=== PATIENT | male | born 1955 | race Caucasian/White ===

== ENCOUNTER 2016-12-18 13:45 | Inpatient (IN) | payer OTHER ==
--- NOTE | 2016-12-18 13:44 | EDPHY ---
H & P HPI/ROS: CHIEF COMPLAINT: Witnessed fall from 20ft. HISTORY OF PRESENT ILLNESS: This patient is a 61 year old male arriving via EMS following a witnessed fall off a balcony about 20ft above ground complaining of left-sided wrist and shoulder pain. EMS reports he was leaning backwards against a railing, which buckled, and he fell backward. His daughter reports he landed in the position on his left side. She states he was groggy and hazy, but she and the patient deny loss of consciousness. Per EMS, he was alert and oriented on scene , and originally hypotensive around 100 systolic but improved during transport. EMS reports he had no pelvic instability of lower extremity complaints. He was noted to have a left clavicular deformity and left wrist deformity. Left wrist was splinted by the paramedics. He received fentanyl and Zofran EN route. The patient confirms the elements of the HPI above. He states he is not sure if he hit his head, and says he felt "kind of foggy", but he denies loss of consciousness. He denies neck or back pain. He has no numbness or apparent weakness. He reports some left-sided chest pain with inspiration, left wrist pain, and left clavicle pain. He does not feel short of breath. VS: BP 131/99, HR 80, SpO2 96% REVIEW OF SYSTEMS: A ten point review of systems was performed and is negative with the exception of the items mentioned in the HPI. Source: Patient, Family, EMS Exam Limitations: No limitations - Medical/Surgical History PMH: 1. Left shoulder arthroscopic surgery ~5 years ago. 2.Knee arthroscopy 3. Vasectomy - Social History Additional Social History: Family at beside (, daughter, and son). He does not use tobacco products or alcohol. He denies the use of illicit drugs. - Physical Exam Exam: General: Cervical collar removed by technical project lead, he arrived on a scoop with cervical immobilization via towels and tape. The patient is in no acute distress. The patient is alert. Marcelle Coma Score is 15 . Blood pressure 131 /99 on arrival. Head: Normocephalic/atraumatic. No Narayanan's sign. No raccoon eyes. Neck: Nontender with palpation of the cervical spine. Trachea is midline. Eyes: PERRLA. EOMI. No subconjunctival hemorrhage. Ears nose and throat: No hemotympanum. Nares are patent and without clotted nasal blood. No dental injury or malocclusion. Airway is patent. Lungs: Mild left rib tenderness, no crepitus, or subcutaneous emphysema. Breath sounds are equal and audible bilaterally. No wheezes, rales, or rhonchi. Thorax: There is midshaft deformity of the left clavicle with tenderness. Cardiac: Heart has regular rate and rhythm without murmur, rub, or gallop. Abdomen: Soft, nontender, and nondistended. No guarding or rebound. Bowel sounds are present. Genital: No blood at the urethral meatus. Rectal: Rectal tone is normal. No blood on the examining glove. Prostate is normal. Back: No vertebral tenderness. Skin: No ecchymoses. Skin is warm and dry. Extremities: Abrasion above left elbow. Wrist in splint, wrapped. Wrist deformity. No other bony point tenderness with evaluation of all 4 extremities, hands, and feet. Pelvis is stable. Hips are nontender. Pulses: 2+ femoral and dorsalis pedis pulses bilaterally. 2+ left radial pulse. Neuro: The patient is alert and oriented. Sensation is intact to light touch of all 4 extremities. Strength is 5 over 5 with testing of major motor groups-- left arm not tested due to splinting. Cranial nerves are normal as tested. PERRLA. EOMI. Facial expression symmetric. Hearing intact to spoken voice. Tongue midline. Constitutional: Initial Vital Signs Temperature (C) 36.7 C 12/18/16 13:50 Heart Rate 78 12/18/16 13:50 Respiratory Rate 20 12/18/16 13:50 Blood Pressure 131/99 H 12/18/16 13:50 O2 Sat (%) 96 12/18/16 13:50 O2 Delivery Mode Room Air Allergies/Adverse Reactions: No Known Allergies Allergy (Unverified 12/18/16 14:28) Home Medications: Medication Instructions Recorded NK [No Known Home Meds] 12/18/16 Medical Decision Making - Diagnostics Imaging Results: Imaging Impressions Clavicle X-Ray 12/18/16 15:00 Impression: Acute minimally displaced left midshaft clavicle fracture. Wrist X-Ray 12/18/16 15:09 Impression: Partial reduction of distal radius fracture. Persistent angulation and displacement of the distal fracture fragment. Imaging: Discussed imaging studies w/ outbound call center representative Radiologist, I viewed and interpreted images myself Procedures: 1. Procedure: Trauma ultrasound. Limited bedside ultrasound was performed and interpreted by myself for the indication of: thoracoabdominal trauma utilizing the thoracoabdominal emergency ultrasound protocol. Limited transthoracic echocardiogram: The pericardium was visualized and found to be negative for pericardial fluid. The study was negative for pericardial effusion. Limited abdominal ultrasound for blunt abdominal trauma. 1) The right upper quadrant was visualized and was found to be negative for intraperitoneal fluid. 2) The left upper quadrant was visualized and found to be negative for intraperitoneal fluid. The study was felt to be negative for free intraperitoneal fluid. Limited pelvic ultrasound was conducted for abdominal trauma. The bladder was visualized and did not reveal an anechoic area outside of the adjacent urinary bladder. The study was felt to be negative for free intraperitoneal fluid. Unfortunately, cardiac and left upper quadrant images were not saved. 2. Procedure: Splint placement. A reverse sugar-tong splint was applied to the left forearm and wrist by the emergency department electrical technician. After application of the splint I re-examined the patient. The splint was adequately immobilizing the joint and the patient' s circulation and sensation were intact. ED Course/Re-evaluation: This patient is a 61 year old male, limited trauma activation, presenting with multiple injuries following a witnessed fall of approximately 20 ft. Physical exam reveals deformity to his left collar bone and left wrist, an abrasion above his elbow, and some tenderness over the left ribs. 13:46 Met EMS at bedside. 13:55 IV established by EMS. Administered 1L NS. HR 48. Patient arrived with systolic pressure of 130 and subsequently complained of feeling badly, as if he might faint. He was supine, pale, and diaphoretic. Blood pressure at that time was noted to be 66 systolic. He was upgraded by me to a full trauma activation at that point. 14:03 Moved to trauma bay due to hypotension. BP 81/54 . Second IV established. 2L IV NS wide open. 14:05 Procedure: Trauma ultrasound at bedside. No abnormalities noted. 14:05 Stat chest x-ray ordered at bedside. Completed 14:08. Reviewed at bedside. 14:10 Wrist x-ray at bedside. 14:10 BP 117/83. Patient denies chest pain. 14:13 Reviewed wrist x-ray at bedside. 14:[address] Ortiz at bedside. Removed wraps and splint from L wrist. Reduced left wrist fracture at bedside. 14:16 Dr. Diaz, trauma surgeon, at bedside. BP 141/95. Dr. Diaz performed trauma exam. 14:[address] 14:[address] Verdin, Radiologist. CT scan of the head reported as normal. CT scan of the cervical spine normal. Chest CT reveals rib fractures of ribs 4 through 10, nondisplaced, and left clavicle comminuted fracture. There is a small pneumothorax. Abdominal CT reveals small splenic laceration without extravasation. CT of thoracic and lumbar spine negative for fracture. The patient had no further hypotension. During his stay in the emergency department his left wrist was formally splinted. Postreduction x-ray revealed improvement but continued angulation. Dr. Ortiz planned surgery on this fracture in the future. The patient was admitted to the trauma surgery service, Dr. Shea. Differential Diagnosis: I considered a differential diagnosis of traumatic injury that includes but is not limited to intracranial hemorrhage, skull fracture, concussion, vertebral injury, spinal cord injury, intrathoracic injury, intra-abdominal injury, long bone fractures, contusions, abrasions, and lacerations. Critical Care Time: I, Dr. Luci Haro, personally spent a total of 45 minutes of critical care time including time spent obtaining a history, performing a physical exam, monitoring interventions, collecting and interpreting tests and in discussion with consultants. This does not include time spent performing procedures or physician temporary administrative assistant time. The patient was at risk of cardiovascular deterioration. - Data Points Medications Given: Discontinued Medications Sodium Chloride (Ns) 1,000 mls @ 0 mls/hr IV ONCE ONE PRN Reason: Wide Open Stop: 12/18/16 13:58 Last Admin: 12/18/16 13:58 Dose: 1,000 mls Departure - Departure Disposition: [facility] Inpatient Acute Clinical Impression: Fracture, clavicle closed, shaft Qualifiers: Encounter type: initial encounter Fracture alignment: displaced Laterality: left Qualified Code(s): S42.022A - Displaced fracture of shaft of left clavicle , initial encounter for closed fracture Ribs, multiple fractures Qualifiers: Encounter type: initial encounter Fracture type: closed Laterality: left Qualified Code(s): S22.42XA - Multiple fractures of ribs, left side, initial encounter for closed fracture Wrist fracture, closed Qualifiers: Encounter type: initial encounter Laterality: left Qualified Code(s): S62.102A - Fracture of unspecified carpal bone, left wrist, initial encounter for closed fracture Splenic laceration Qualifiers: Encounter type: initial encounter Qualified Code(s): S36.039A - Unspecified laceration of spleen, initial encounter Fall Qualifiers: Encounter type: initial encounter Qualified Code(s): W19.XXXA - Unspecified fall, initial encounter Condition: Fair Report Scribed for: Luci Haro Report Scribed by: Rupal Moraes Date of Report: 12/18/16 Time of Report: 15:16 Physician Review and Approval Statement: 12/18/16 13:44 Portions of this note were transcribed by the biomedical photographer. I, Dr. Luci Haro, personally performed the history, physical exam, and medical decision- making; and confirmed the accuracy of the information in the transcribed note.
[2016-12-18] MEDS ORDERED: NS 1,000 ML IV ONE (13:57)
--- NOTE | 2016-12-18 15:11 | PDGENHP ---
History and Physical - Chief Complaint 61 y/o male fell off his deck landing on his left side 20 ft down/FTA - History of Present Illness Mr. Lyons was [place] his [place] near [place] when he leaned against the deck rail, which gave way and he fell 20 feet landing on his left side. He remained conscious and was transported by EMR to [facility] ED as a FTA. En route he had a drop in BP which responded to volume challenge. He arrive at 1400, while I was in the OR and he was seen on arrival by Dr. Myers. I met him at [address] scanner. He reports left shoulder and left wrist pain and feels like he has to urinate. He denies LOC, weakness, numbness, paresthesias, neck or back pain. He does have some left sided chest pain with movement or deep inspiration History Information - Allergies/Home Medication List Allergies/Adverse Reactions: No Known Allergies Allergy (Unverified 12/18/16 14:28) Home Medications: NK [No Known Home Meds] 12/18/16 [Last Taken Unknown] I have personally reviewed and updated: family history, medical history, social history, surgical history - Past Medical History hypertension (mild/monitored by PCP) - Surgical History Additional surgical history: left shoulder and right knee arthroscopy - Family History Positive for: hypertension - Social History Smoking Status: Never smoked Alcohol Use: None Drug Use: None Additional social history: and accompanied by his , daughter and son Review of Systems Constitutional: Reports: recent injury (fall as described in HPI) EENMT: Reports: no symptoms Cardiac: Reports: chest pain (left lateral) Respiratory: Reports: other (pain with deep inspiration/laughing) Gastrointestinal: Reports: no symptoms Genitourinary: Reports: other (has not voided since injury) Muscolosketal: Reports: joint pain (left shoulder/left wrist. Pt is right handed) Skin: Reports: no symptoms Neurological: Reports: no symptoms Hematologic/Lymphatic: Reports: no symptoms Immunologic/Allergy: Reports: no symptoms, other (tetanus vaccination within last 5 years) Physical Exam Temp Pulse Resp BP Pulse Ox 36.7 C 78 20 131/99 H 96 12/18/16 13:50 12/18/16 13:50 12/18/16 13:50 12/18/16 13:50 12/18/16 13:50 Constitutional: uncomfortable Eyes: PERRL, EOMI, other (no hemotympanum) Ears, Nose, Mouth, Throat: ears appear normal Cardiovascular: regular rate and rhythym Peripheral Pulses: 3+: dorsalis-pedis (R), dorsalis-pedis (L), 4+: carotid (R), carotid (L), femoral (R), femoral (L) Respiratory: clear to auscultation Genitourinary: other (bladder fullness to palpation) Skin: warm, other (mild pallor) Musculoskeletal: full muscle strength, other (tendern deformity left midclavicle /left wrist in volar splint post reduction/non-tender cervical, thoracic and lumbar spine posterior midline) Neurologic: AAOx3, sensation intact bilaterally, CN II-XII Intact, other (DTS's brisk and symmetrical) Lab Data & Imaging Review POC Hgb 13.6 gm/dL (14.5-17.3) L 12/18/16 14:08 POC Hct 40 % (42.8-50.6) L 12/18/16 14:08 POC Sodium 144 mEq/L (134-144) 12/18/16 14:08 POC Potassium 3.7 mEq/L (3.3-5.0) 12/18/16 14:08 POC Chloride 108 mEq/L (96-108) 12/18/16 14:08 POC BUN 20 mg/dL (7-23) 12/18/16 14:08 POC Creatinine 1.1 mg/dL (0.8-1.5) 12/18/16 14:08 POC Glucose 114 mg/dL (70-100) H 12/18/16 14:08 Patient ABO/Rh O POSITIVE 12/18/16 14:13 Antibody Screen NEGATIVE 12/18/16 14:13 Crossmatch IS Only See Detail 12/18/16 14:13 Visualized and Interpreted Chest x-ray results: Yes Chest X-Ray results: no infiltrate Visualized and Interpreted imaging results: Yes Interpretation: reviewed with Dr. Verdin. CT chest/abd left posterior 4-10 rib fx, tiny possible left pneumothorax, left inferior pole splenic subcapsular hematoma (grade 1), left midshaft clavicle fracture Assessment & Plan Assessment: S/p fall from 20 ft. height left distal radius/ulnar fracture, closed, s/p reduction in ED by Dr. Richardson Left midshaft clavicle fracture multiple left posterior non-displaced rib fractures (4-10) possible tiny left pneumothorax grade 1 splenic laceration transient hypotension, unlikely related to significant blood loss hx mild hypertension Plan: Admit observation to SDU monitor H/H, BP, left UE N/V status repeat CXR in AM SCD's for VTE prophylaxis Dr. Long feels the left wrist and possible the clavicle will require ORIF at some point
[2016-12-18] MEDS ORDERED: DIAZEPAM 5 MG TAB PO PRN (15:12)
[2016-12-18] MEDS ORDERED: ONDANSETRON DISINTEGRATING 4 MG TAB PO PRN (15:12)
[2016-12-18] MEDS ORDERED: ONDANSETRON 4 MG/2 ML VIAL IVP PRN (15:12)
[2016-12-18 15:40] LABS: COLOR PALE YELLOW; LEUKOCYTE ESTERASE,URINE NEGATIVE (NEGATIVE); NITRITE,URINE NEGATIVE (NEGATIVE)
[2016-12-18] MEDS ORDERED: IOPAMIDOL (ISOVUE-300) 100 ML BTL ONE (15:40)
[2016-12-18 15:46] LABS: MUCUS TRACE /lpf (NONE-1+)
[2016-12-18] MEDS ORDERED: fentaNYL 100 MCG/2 ML INJ ONE (15:46)
--- NOTE | 2016-12-18 16:07 | GCON ---
[f rep st] CONSULTATION EMERGENCY ROOM CONSULTATION DATE OF CONSULTATION: 12/18/2016 CHIEF COMPLAINT: Fall from height. HISTORY OF PRESENT ILLNESS: This is a 61-year-old male who arrived after falling backward when a ra il buckled. He reportedly fell about 20 feet. Denies losing consciousness, but was hazy. Seen in the ER as a full trauma activation. He complained of wrist pain, shoulder pain. PAST MEDICAL HISTORY: Reviewed with him and his family, is not significant. SURGICAL HISTORY: Has had shoulder surgery about 5 years ago and has had left knee arthroscopy and a vasectomy. MEDICATIONS: Please see inpatient medication list. ALLERGIES: No known drug allergies. FAMILY HISTORY: Noncontributory. SOCIAL HISTORY: Nonsmoker. REVIEW OF SYSTEMS: Full review of systems was obtained is otherwise negative. PHYSICAL EXAMINATION: GENERAL: He is alert and is responsive. He is in a C-collar. HEENT: He andrade s some abrasions on his face. He is able to move his eyes. NECK: He is in a C-collar. HEART: Hi s pulses are regular in rate and rhythm. LUNGS: He shows good inspiratory effort. ABDOMEN: Soft. EXTREMITIES: His left upper extremity, when I saw him in the trauma bay, was in a splint. I trina kary this and this was grossly deformed. I performed a reduction of this and obtained much better al ignment. He was able to flex and extend his thumb and his fingers, and reports sensation to all ner ves. His elbow and shoulder move well. Did have some crepitus in his left collarbone. Right upper extremity moved well with no point tenderness. He had sensation intact to lower extremities. He i s able to move quite well with good range of motion, 5/5 strength. RADIOGRAPHS: Initial wrist radiograph showed a displaced distal radius fracture with severe dorsal angulation. CT scan shows a clavicle fracture. PLAN: He is being admitted to the trauma service. Will obtain repeat x-rays now that I have reduce d the distal radius. He will be placed in a more stable splint. He will need an ORIF of distal rad ius in the future. We will also obtain plain films of the clavicle to further assess the length and rotation alignment of this to see if this requires surgery as well. We will follow up these films and make further recommendations. /[id number]/MODL
[2016-12-18 17:48] LABS: % IMMATURE GRANULYOCYTES 0.5 % (0.0-1.1); ABSOLUTE IMMATURE GRANULOCYTES 0.08 10^3/uL (0.00-0.10); ADD DIFF? NO; ADD MORPH? NO; ADD SCAN? NO; ATYPICAL LYMPHOCYTE FLAG 0 (0-99); FRAGMENT RBC FLAG 0 (0-99); HEMATOCRIT 38.6 % (40.0-51.0); HEMOGLOBIN 13.1 g/dL (13.7-17.5); LEFT SHIFT FLG 0 (0-99); LIPEMIA HEMOLYSIS FLAG 90 (0-99); MEAN CELL HEMOGLOBIN 30.7 pg (27.9-34.1); MEAN CELL HEMOGLOBIN CONCENTR. 33.9 g/dL (32.4-36.7); MEAN CELL VOLUME 90.4 fL (81.5-99.8); MEAN PLATELET VOLUME 10.6 fL (8.7-11.7); PLATELET CLUMPS FLAG 10 (0-99); PLATELET COUNT 193 10^3/uL (150-400); RED BLOOD CELL COUNT 4.27 10^6/uL (4.40-6.38); RED CELL DISTRIBUTION WIDTH 12.6 % (11.5-15.2)
[2016-12-18 17:57] LABS: INR 1.07 (0.83-1.16); PROTIME(PATIENT) 13.8 SEC (12.0-15.0)
[2016-12-18 17:58] LABS: APTT 28.3 SEC (23.0-38.0)
[2016-12-18 18:15] LABS: ANION GAP 9 mEq/L (8-16); CALCIUM 7.8 mg/dL (8.5-10.4); CARBON DIOXIDE 20 mEq/l (22-31); CHLORIDE 113 mEq/L (97-110); CREATININE 0.9 mg/dL (0.7-1.3); GLOMERULAR FILTRATION RATE > 60; GLUCOSE 108 mg/dL (70-100); POTASSIUM 4.3 mEq/L (3.5-5.2); SODIUM 142 mEq/L (134-144)
[2016-12-18] MEDS: HYDROCODONE/APAP 5/325 TAB PO PRN ×2 (18:45→23:45)
[2016-12-18] MEDS: IBUPROFEN 600 MG TAB PO SCH (21:20)
[2016-12-18 21:35] LABS: HEMATOCRIT 37.6 % (40.0-51.0); HEMOGLOBIN 12.9 g/dL (13.7-17.5)
[2016-12-19 03:20] LABS: HEMATOCRIT 36.7 % (40.0-51.0); HEMOGLOBIN 12.3 g/dL (13.7-17.5)
[2016-12-19] MEDS: IBUPROFEN 600 MG TAB PO SCH ×3 (06:08→21:06)
[2016-12-19 06:28] LABS: HEMATOCRIT 37.3 % (40.0-51.0); HEMOGLOBIN 12.7 g/dL (13.7-17.5)
[2016-12-19 06:47] LABS: ANION GAP 4 mEq/L (8-16); CALCIUM 8.6 mg/dL (8.5-10.4); CARBON DIOXIDE 23 mEq/l (22-31); CHLORIDE 108 mEq/L (97-110); CREATININE 0.8 mg/dL (0.7-1.3); GLOMERULAR FILTRATION RATE > 60; GLUCOSE 109 mg/dL (70-100); POTASSIUM 4.4 mEq/L (3.5-5.2); SODIUM 135 mEq/L (134-144)
[2016-12-19] MEDS: HYDROCODONE/APAP 5/325 TAB PO PRN ×3 (07:29→21:07)
--- NOTE | 2016-12-19 10:02 | TRAUMAPN ---
- Problem/Surgery Performed (1) Fracture, clavicle closed, shaft Assessment/Plan: Xrays performed awaiting Dr Ortiz Orthopedic surgery recommendations. Pain control. Qualifiers: Encounter type: initial encounter Fracture alignment: displaced Laterality: left Fracture healing: F Qualified Code(s): S42.022A - Displaced fracture of shaft of left clavicle, initial encounter for closed fracture (2) Ribs, multiple fractures Assessment/Plan: Pain fairly well controlled with medications Aggressive pulmonary toilet Qualifiers: Encounter type: initial encounter Fracture type: closed Laterality: left Fracture healing: F Qualified Code(s): S22.42XA - Multiple fractures of ribs, left side, initial encounter for closed fracture (3) Splenic laceration Assessment/Plan: Hbg/HCT stable x 3 last 12.7/37.3 Continue non operative management Advance diet Qualifiers: Encounter type: initial encounter Qualified Code(s): S36.039A - Unspecified laceration of spleen, initial encounter (4) Wrist fracture, closed Assessment/Plan: ORIF Monday per Dr Ortiz. distally neurovascular status normal. some tingling in fingers relieved with elevation Qualifiers: Encounter type: initial encounter Laterality: left Fracture healing: F Qualified Code(s): S62.102A - Fracture of unspecified carpal bone, left wrist, initial encounter for closed fracture Assessment/Plan: 61 yo s/p fall from [facility] ft [facility] Doing well ORIF left distal dorsally displaced radius fx 12/21 transfer to floor Objective: Vital Signs Temp Pulse Resp BP Pulse Ox 37.2 C 66 12 136/84 H 99 12/18/16 20:03 12/19/16 04:00 12/19/16 04:00 12/19/16 04:00 12/19/16 04:00 Laboratory Results 12/19/16 06:20 12/19/16 06:20 12/18/16 12/19/16 12/20/16 05:59 05:59 05:59 Intake Total 250 Output Total 350 Balance -100 PT 13.8 SEC (12.0-15.0) 12/18/16 17:30 INR 1.07 (0.83-1.16) 12/18/16 17:30 Physical Exam - Physical Exam General Appearance: alert, no apparent distress EENT: PERRL/EOMI Neck: non-tender Respiratory: decreased breath sounds Cardiac/Chest: regular rate, rhythm Peripheral Pulses: 2+: dorsalis-pedis (R), dorsalis-pedis (L) Abdomen: non-tender, No hepatomegaly, No splenomegaly Neuro/Psych: no motor/sensory deficits, alert, oriented x 3
--- NOTE | 2016-12-19 10:18 | SOAPPROG ---
SOAP Progress Note Assessment/Plan: Assessment: left distal radius fx left clavicle fx Plan: Plan orif left distal radius and clavicle on wed nwb lue 12/19/16 10:17 Subjective: pain controlled Objective: Vital Signs Temp Pulse Resp BP Pulse Ox 37.2 C 66 12 136/84 H 99 12/18/16 20:03 12/19/16 04:00 12/19/16 04:00 12/19/16 04:00 12/19/16 04:00 Laboratory Results 12/19/16 06:20 12/19/16 06:20 12/18/16 12/19/16 12/20/16 05:59 05:59 05:59 Intake Total 250 Output Total 350 Balance -100 PT 13.8 SEC (12.0-15.0) 12/18/16 17:30 INR 1.07 (0.83-1.16) 12/18/16 17:30 in splint ICD10 Worksheet Patient Problems: Problems Problem Status Onset Fall Acute Fracture, clavicle closed, shaft Acute Ribs, multiple fractures Acute Splenic laceration Acute Wrist fracture, closed Acute
[2016-12-19] MEDS ORDERED: PNEUMOCOCCAL 0.5ML VACCINE VIAL IM ONE (11:20)
[2016-12-19] MEDS: SENNOSIDES/DOCUSATE SODIUM TAB PO PRN (14:56)
[2016-12-20] MEDS: HYDROCODONE/APAP 5/325 TAB PO PRN ×4 (03:04→23:47)
[2016-12-20] MEDS: IBUPROFEN 600 MG TAB PO SCH ×3 (05:33→22:25)
--- NOTE | 2016-12-20 08:27 | TRAUMAPN ---
Assessment/Plan: S/p fall from [facility] with L rad/ulna fx, l clav fx, multiple rib fx and grade 1 splenic lac Discussed splenic precautions to avoid re-injury Dr. ruzi to OR tomorrow for ORIF, npo midnight Bowel protocol S: sore but no abdominal pain O: sitting up drinking coffee with , comfortable, NAD L arm in splint, able to wiggle fingers, NVI CTAB, no increased work of breathing RRR, no peripheral edema Significant swelling/ecchymosis over L clavicle abd soft, nontender, nondistended, no flank ecchymosis Neuro - grossly intact Skin warm and dry Psych mood and affect normal NCAT, PER, No scleral icterus, mucous membranes moist, no rhinorrhea Objective: Vital Signs Temp Pulse Resp BP Pulse Ox 36.6 C 83 18 145/101 H 93 12/20/16 07:35 12/20/16 07:35 12/20/16 04:00 12/20/16 07:35 12/20/16 07:35 Laboratory Results 12/19/16 06:20 12/19/16 06:20 12/19/16 12/20/16 12/21/16 05:59 05:59 05:59 Intake Total 250 900 Output Total 350 Balance -100 900 PT 13.8 SEC (12.0-15.0) 12/18/16 17:30 INR 1.07 (0.83-1.16) 12/18/16 17:30
--- NOTE | 2016-12-20 10:28 | SOAPPROG ---
SOAP Progress Note Assessment/Plan: Assessment: left distal radius fx left clavicle fx Plan: Plan orif left distal radius and clavicle tomorrwo at 3:15 NPO at midnight hold lovenox tomorrow nwb lue 12/19/16 10:17 12/20/16 10:27 Subjective: improving Objective: Vital Signs Temp Pulse Resp BP Pulse Ox 36.6 C 83 18 145/101 H 93 12/20/16 07:35 12/20/16 07:35 12/20/16 04:00 12/20/16 07:35 12/20/16 07:35 Laboratory Results 12/19/16 06:20 12/19/16 06:20 12/19/16 12/20/16 12/21/16 05:59 05:59 05:59 Intake Total 250 900 Output Total 350 Balance -100 900 PT 13.8 SEC (12.0-15.0) 12/18/16 17:30 INR 1.07 (0.83-1.16) 12/18/16 17:30 in splint nvi ICD10 Worksheet Patient Problems: Problems Problem Status Onset Fall Acute Fracture, clavicle closed, shaft Acute Ribs, multiple fractures Acute Splenic laceration Acute Wrist fracture, closed Acute
[2016-12-20] MEDS: SENNOSIDES/DOCUSATE SODIUM TAB PO PRN (10:36)
[2016-12-21] MEDS: IBUPROFEN 600 MG TAB PO SCH ×3 (05:33→20:41)
[2016-12-21] MEDS: HYDROCODONE/APAP 5/325 TAB PO PRN ×2 (05:34→20:40)
[2016-12-21] MEDS ORDERED: LR 1,000 ML IV SCH (08:30)
--- NOTE | 2016-12-21 08:41 | TRAUMAPN ---
Assessment/Plan: s/p 20 ft fall left clavicle fx. left wrist fracture\ left 4-10 rib fx tiny apical pneumothorax, left, on admission CT grade 1 splenic lac Plan: ORIF left clavicle/wrist today 1500 repeat CXR pre-op anticipate discharge tomorrow S MD Monse, FACS Objective: Vital Signs Temp Pulse Resp BP Pulse Ox 36.6 C 71 14 129/86 H 91 L 12/21/16 07:31 12/21/16 07:31 12/21/16 07:31 12/21/16 07:31 12/21/16 07:31 Laboratory Results 12/19/16 06:20 12/19/16 06:20 12/20/16 12/21/16 12/22/16 05:59 05:59 05:59 Intake Total 900 Output Total 350 Balance 900 -350 PT 13.8 SEC (12.0-15.0) 12/18/16 17:30 INR 1.07 (0.83-1.16) 12/18/16 17:30 - C-Spine Clearance Cervical Spine Cleared: Yes Provider who Cleared Cervical Spine: MONSE Physical Exam - Physical Exam General Appearance: alert, no apparent distress Respiratory: lungs clear, normal breath sounds, decreased breath sounds Cardiac/Chest: regular rate, rhythm Abdomen: non-tender, soft Extremities: other (LUE splint intact)
[2016-12-21] MEDS ORDERED: ceFAZolin 2 GM/DEXTROSE 100 ML IV ONE (10:34)
--- NOTE | 2016-12-21 10:34 | SOAPPROG ---
SOAP Progress Note Assessment/Plan: Assessment: left distal radius fx left clavicle fx Plan: Plan orif left distal radius and clavicle today NPO informed consent signed 12/19/16 10:17 12/20/16 10:27 12/21/16 10:33 Subjective: mild pain Objective: Vital Signs Temp Pulse Resp BP Pulse Ox 36.6 C 71 14 129/86 H 91 L 12/21/16 07:31 12/21/16 07:31 12/21/16 07:31 12/21/16 07:31 12/21/16 07:31 Laboratory Results 12/19/16 06:20 12/19/16 06:20 12/20/16 12/21/16 12/22/16 05:59 05:59 05:59 Intake Total 900 Output Total 350 Balance 900 -350 PT 13.8 SEC (12.0-15.0) 12/18/16 17:30 INR 1.07 (0.83-1.16) 12/18/16 17:30 in splint ICD10 Worksheet Patient Problems: Problems Problem Status Onset Fall Acute Fracture, clavicle closed, shaft Acute Ribs, multiple fractures Acute Splenic laceration Acute Wrist fracture, closed Acute
[2016-12-21] MEDS ORDERED: CEFAZOLIN 2 GM/DEXTROSE/100 ML BAG IV ONE (13:49)
[2016-12-21] MEDS ORDERED: BUPIVACAINE/EPI 0.5% 30 ML SDV ONE (14:01)
[2016-12-21] MEDS ORDERED: BUPIVACAINE 0.5% 30 ML SDV ONE (14:02)
[2016-12-21] MEDS ORDERED: fentaNYL 100 MCG/2 ML INJ ONE ×2 (14:14→14:15)
[2016-12-21] MEDS ORDERED: PROPOFOL/EMULSION 500 MG/50 ML BOTTLE IV ONE ×3 (14:20→15:47)
[2016-12-21] MEDS ORDERED: MIDAZOLAM 2 MG/2 ML VIAL ONE (14:27)
[2016-12-21] MEDS ORDERED: HYDROmorphONE/DILAUDID 2 MG/ML INJ ONE (16:15)
--- NOTE | 2016-12-21 17:47 | POSTOPPROG ---
Post Op Note Date of Operation: 12/21/16 Surgeon: Scott Ortiz Cover Maker: Pedro Anesthesiologist: Yimi Pre-op Diagnosis: left distal radius and clavicle fracture Post-op Diagnosis: same Indication: above Procedure: orif left distal radius and clavicle Inf/Abcess present in the surg proc area at time of surgery?: No EBL: 50-100
--- NOTE | 2016-12-21 18:22 | GOP ---
[f rep st] OPERATIVE REPORT DATE OF OPERATION: 12/21/2016 SURGEON: Scott Ortiz MD PYTHON DEVELOPER: Adenike Garcia, SARAH ANESTHESIA: General. PREOPERATIVE DIAGNOSIS: Left clavicle fracture, left distal radius fracture. POSTOPERATIVE DIAGNOSIS: Left clavicle fracture, left distal radius fracture. PROCEDURE PERFORMED: 1. Open reduction internal fixation, left clavicle fracture. 2. Open reduction internal fixation, left distal radius fracture, 2 part. FINDINGS: SPECIMENS: None. ESTIMATED BLOOD LOSS: 50 mL combined. Of note, these were 2 separate procedures with separate positioning and prepping and draping. INDICATIONS: This is a 61-year-old male who fell from height. He sustained these fractures. He was admitted to the trauma service and was cleared for surgery by them. Elected to proceed with the ORIF given the displacement. We discussed fixation of just the distal radius versus both, and elected for both for better mobility, better shoulder function going forward, and better healing given the comminution. It was elected to proceed. Informed consent was obtained. All questions were answered. Marked preoperatively. Discussed the risks of nerve injury, particularly in the median nerve as well as plate and hardware irritation, tendon irritation, nonunion, malunion, arthritis, and elected to proceed. DESCRIPTION OF PROCEDURE: Procedure 1 was distal radius: He was positioned flat on the arm table, sterilely prepped and draped in normal fashion. Time- out was performed verifying the site, side, location, and there was agreement with the team. Incision was made over the volar aspect of the distal radius. Dissected through the FCR sheath and down to the radius, elevating off the pronator quadratus, protecting neurovascular structures, exposed the fractures. Able to manually reduce after cleaning fragments. Plan was to provisionally fix and checked this fluoroscopically. Placed a proximal cortical screw, placed distal locking screws, holding this, then a proximal cortical screw and checked this. Did reposition 1 screw and then rechecked this fluoroscopically, liked the reduction, alignment, and the fixation. Thoroughly irrigated this, closed with 2-0 Vicryl, 3-0 Quill, and Dermabond. He was placed in a sterile dressing and splint. The drapes were removed, and he was taken to a new table, placed in a beach chair position. Bony prominences were padded. This began the second procedure. Verified the patient, site, side, location, and there was agreement with the team. Incision was made over the clavicle, dissected down to this. Protected the soft tissue structures. This was severely comminuted and displaced. There were multiple comminuted fragments that were difficult to position. I was able to get a couple of the cortical fragments and put this in a proximal position. Pinned the plate into position, and then contoured the plate. After removing this, again re-pinned the plate, and then placed a cortical screw in this distally to bring this to bone. I then placed locking screws distally. I was able to then reduce the fragments, and then place cortical screws proximally to hold this length, alignment, and rotation correctly. A portion of the comminuted fragments fell into good position. Another portion had to be sutured in a cerclage fashion back to the fracture and the plate to get better healing. I did use 1 cc of bone graft, given the large amount of comminution of the gap. He was closed with 2-0 Vicryl, 3-0 Quill, and Dermabond. He was placed in a sterile dressing, taken to PACU in stable condition. COMPLICATIONS: None. DRAINS: None. CONDITION: Stable. /[id number]/MODL MTDD
[2016-12-22] MEDS: HYDROCODONE/APAP 5/325 TAB PO PRN ×2 (02:54→10:04)
[2016-12-22] MEDS: IBUPROFEN 600 MG TAB PO SCH (05:45)
--- NOTE | 2016-12-22 07:45 | SOAPPROG ---
SOAP Progress Note Assessment/Plan: Assessment: left distal radius fx left clavicle fx Plan: Plan orif left distal radius and clavicle yesterday november d/c home today mechanical dvt prophalaxsis only from my standpoint will f/u with me in 1 week in clinic they have my card to make appt 1 lbs wt limit LUE and ROM as tolerated Subjective: pain controlled Objective: Vital Signs Temp Pulse Resp BP Pulse Ox 36.9 C 79 16 122/84 H 98 12/22/16 04:00 12/22/16 04:00 12/22/16 04:00 12/22/16 04:00 12/22/16 04:00 Laboratory Results 12/19/16 06:20 12/19/16 06:20 12/21/16 12/22/16 12/23/16 05:59 05:59 05:59 Intake Total 3500 Output Total 350 640 Balance -350 2860 PT 13.8 SEC (12.0-15.0) 12/18/16 17:30 INR 1.07 (0.83-1.16) 12/18/16 17:30 slight numbnessi and median nerve distributions seems to be improving. Can flex extend and abduct fingers with good strength. Dressings are dry. ICD10 Worksheet Patient Problems: Problems Problem Status Onset Fall Acute Fracture, clavicle closed, shaft Acute Ribs, multiple fractures Acute Splenic laceration Acute Wrist fracture, closed Acute
[2016-12-22 08:00] VITALS: BP 135/87; PULSE 85; RESP 15; TEMP 98.2; O2SAT 95
--- NOTE | 2016-12-22 09:07 | GDS ---
[f rep st] DISCHARGE SUMMARY DISCHARGE DIAGNOSES: 1. Fall from 20 feet. 2. Left distal radius/ulnar fracture, closed. 3. Left midshaft clavicular fracture. 4. Multiple left posterior nondisplaced rib fractures numbering 4 through 10. 5. Small occult pneumothorax on the left. 6. Grade 1 splenic laceration. HOSPITAL COURSE: The patient was received as a trauma activation in the afternoon of the . On arrival, he was alert, oriented, and met by the trauma team there. Imaging showed the above injurie s. He was subsequently admitted to the trauma service and subsequently taken to the operating room on for ORIF of the left distal radius/ulnar fracture and ORIF of the left clavicular fracture. Throughout his hospital course, his pain was well controlled, and his diet was advanced and well to lerated. He was subsequently discharged home in stable condition on the morning of the . DISCHARGE MEDICATIONS: The only new medications he was sent home on were ibuprofen as needed and No rco for pain. FOLLOWUP: He will follow up with Dr. Ortiz in 1 week. He has no specific need to follow up with [facility] trauma service. Should he need anything in the future, he is welcome to call. /[id number]/MODL
== END 2016-12-22 10:24 | disposition home or self-care (01) | DRG 959 ==
LOC: F2N 16:30 → OBSVTOIN 17:00 → F3N 12-19 14:37
PROVIDERS: ADMIT Surgery; ATTEND Surgery
PROC: 2W3DX1Z Immobilization of Left Lower Arm using Splint (ICD-10-PCS; 2016-12-18)
PROC: 0PSB04Z Reposition Left Clavicle with Internal Fixation Device, Open Approach (ICD-10-PCS; principal; 2016-12-20)
PROC: 0PSJ04Z Reposition Left Radius with Internal Fixation Device, Open Approach (ICD-10-PCS; principal; 2016-12-20)
DX: S52.502A Unspecified fracture of the lower end of left radius, initial encounter for closed fracture (principal); S42.022A Displaced fracture of shaft of left clavicle, initial encounter for closed fracture; S52.602A Unspecified fracture of lower end of left ulna, initial encounter for closed fracture; S22.42XA Multiple fractures of ribs, left side, initial encounter for closed fracture; S36.031A Moderate laceration of spleen, initial encounter; S62.102A Fracture of unspecified carpal bone, left wrist, initial encounter for closed fracture; S27.0XXA Traumatic pneumothorax, initial encounter; W13.0XXA Fall from, out of or through balcony, initial encounter; Y92.098 Other place in other non-institutional residence as the place of occurrence of the external cause; I10 Essential (primary) hypertension
CPT/HCPCS: 82947-QW; 97116-GP; 97161-GP; 97165-GO; 97535-GO; C1713; C1769; G0009; J0690; J1170; J2250; J2704; J3010; L3908; Q9967